=== PATIENT | male | born 1985 | race Asian ===

== ENCOUNTER 2022-10-27 08:40 | Outpatient (CLI) | payer BC | END 2022-10-27 08:41 | disposition home or self-care (01) | LOC: ULT 08:40 | PROVIDERS: ATTEND Internal Medicine | DX: R74.8 Abnormal levels of other serum enzymes (principal); R94.5 Abnormal results of liver function studies; K76.0 Fatty (change of) liver, not elsewhere classified | CPT/HCPCS: 76705 ==